=== PATIENT | male | born 1965 | race Caucasian/White ===

== ENCOUNTER 2019-10-19 06:00 | Day surgery (SDC) | payer MEDICARE ==
[2019-10-17 15:01] LABS: ALANINE AMINOTRANSFERASE 35 U/L (12-78); ALBUMIN 3.5 g/dL (3.4-5.0); ANION GAP 6 mmol/L (5-15); CALCIUM 8.6 mg/dL (8.5-10.1); CHLORIDE 106 mmol/L (98-107)
[2019-10-17 15:04] LABS: ALKALINE PHOSPHATASE 81 U/L (45-117); BILIRUBIN,TOTAL 0.7 mg/dL (0.2-1.0); CREATININE 0.91 mg/dL (0.7-1.3); TOTAL PROTEIN 6.8 g/dL (6.4-8.2)
[~2019-10-19] VITALS: Ht 185.4 cm; Wt 106.0 kg
[~2019-10-19 06:00] MED LIST: AMLO-150 PO; LISI40TA PO; MINO100C61 PO
[2019-10-19] MEDS ORDERED: LACTATED RINGERS 1,000 ML IV SCH (06:27)
[2019-10-19 06:31] VITALS: BP 143/92
[2019-10-19] MEDS ORDERED: MIDAZOLAM 1 MG/ML, 2ML ONE (06:56)
[2019-10-19] MEDS ORDERED: FENTANYL PF 250 MCG/5ML ONE ×2 (06:56→08:08)
[2019-10-19] MEDS ORDERED: GABAPENTIN 300 MG CAPSULE PO ONE (07:00)
[2019-10-19] MEDS ORDERED: ACETAMINOPHEN 500 MG TABLET PO ONE (07:00)
[2019-10-19] MEDS ORDERED: BUPIVACAINE/PF 0.5% ONE (07:01)
[2019-10-19] MEDS ORDERED: EPINEPHRINE 1 MG/ML, 1ML ONE (07:01)
[2019-10-19] MEDS ORDERED: ONDANSETRON 2MG/ML, 2ML IV PRN (07:30)
[2019-10-19] MEDS ORDERED: MEPERIDINE/PF 25MG/ML,1ML IVPush PRN (07:30)
[2019-10-19] MEDS ORDERED: FENTANYL PF 100 MCG/2ML IV PRN (07:30)
[2019-10-19] MEDS ORDERED: MORPHINE SULFATE 4 MG/ML, 1ML IVPush PRN (07:30)
[2019-10-19] MEDS ORDERED: LABETALOL 5MG/ML, 20ML IV PRN (07:30)
[2019-10-19] MEDS ORDERED: hydrALAzine 20 MG/ML, 1ML IV PRN (07:30)
[2019-10-19] MEDS ORDERED: OXYcodone 5 MG/5 ML ORAL.SOL UDC PO PRN (07:30)
[2019-10-19] MEDS ORDERED: HYDROmorphone 2 MG/ML, 1ML IVPush PRN (07:30)
[2019-10-19] MEDS ORDERED: ROCURONIUM 10MG/ML,5ML ONE ×2 (08:08)
[2019-10-19] MEDS ORDERED: NEOSTIGMINE 1 MG/ML, 10ML ONE (08:08)
[2019-10-19] MEDS ORDERED: GLYCOPYRROLATE 0.2MG/1ML, 5ML ONE (08:08)
[2019-10-19] MEDS ORDERED: CEFAZOLIN 1,000 MG ONE (08:08)
[2019-10-19] MEDS ORDERED: PROPOFOL 10 MG/ML, 20ML ONE (08:08)
[2019-10-19] MEDS ORDERED: KETOROLAC 30 MG/1 ML ONE (08:25)
[2019-10-19] MEDS ORDERED: SUGAMMADEX 200 MG/2 ML IVPush ONE ×2 (08:28→09:29)
[2019-10-19] MEDS ORDERED: THROMBIN 5,000 UNIT VIAL TP ONE (09:11)
[2019-10-19] MEDS ORDERED: FENTANYL PF 100 MCG/2ML ONE (09:15)
== END 2019-10-19 12:00 | disposition home or self-care (01) ==
LOC: OUT 06:00
PROVIDERS: ATTEND Colon & Rectal Surgery
DX: K40.91 Unilateral inguinal hernia, without obstruction or gangrene, recurrent (principal); K42.9 Umbilical hernia without obstruction or gangrene; E66.01 Morbid (severe) obesity due to excess calories; I10 Essential (primary) hypertension; G47.30 Sleep apnea, unspecified; F17.210 Nicotine dependence, cigarettes, uncomplicated; Z68.31 Body mass index [BMI] 31.0-31.9, adult; Z79.899 Other long term (current) drug therapy; Z98.890 Other specified postprocedural states
CPT/HCPCS: 36415; 49585; 49651; 80053; 88302; C1781; J0171; J0690; J1885; J2250; J2704; J2710; J3010; J7120